=== PATIENT | male | born 1990 | race Hispanic/Latino ===

== ENCOUNTER 2018-06-13 11:50 | Emergency (ER) | payer BC ==
[~2018-06-13] VITALS: Ht 190.5 cm; Wt 108.6 kg
[2018-06-13] MEDS ORDERED: LIDOCAINE HCL 2% LOCAL 20 ML VIAL INJ STA (12:00)
[2018-06-13] MEDS ORDERED: TETANUS/DIPHTHERIA TOX ADULT 0.5 ML SYR IM STA (12:00)
[2018-06-13] MEDS ORDERED: IBUPROFEN 200 MG TAB PO ONE (12:00)
[2018-06-13] MEDS ORDERED: MUPIROCIN 2% OINT 22 GM TUBE TOP ONE (12:00)
--- NOTE | 2018-06-13 12:29 | Diagnostic Imaging Report ---
FINGER RT - HOPD HISTORY: Laceration, right thumb. COMPARISON: None available. FINDINGS: Bones: No acute displaced fracture. Corticated density at the palmar base of the distal phalanx of the thumb on lateral view may related to remote avulsion. Osseous alignment is within normal limits. Joints: The joint spaces are well-maintained. Soft tissues: Laceration of the tip of the the thumb. IMPRESSION: Laceration of the tip of the the thumb. Corticated density at the palmar base of the distal phalanx of the thumb likely related to remote avulsion. No acute osseous abnormalities. Signed by: DR. Eagle Hewitt MD on 06/13/2018 12:25 PM
[2018-06-13 13:20] VITALS: BP 145/88
== END 2018-06-13 13:25 | disposition home or self-care (01) ==
LOC: FSED 11:50
DX: S61.111A Laceration without foreign body of right thumb with damage to nail, initial encounter (principal); W26.0XXA Contact with knife, initial encounter; Y92.008 Other place in unspecified non-institutional (private) residence as the place of occurrence of the external cause
CPT/HCPCS: 12042; 73140; 90471; 90714; 99283; J2001